=== PATIENT | female | born 1990 | race Caucasian/White ===

== ENCOUNTER 2023-06-08 10:07 | Emergency (ER) | payer OTHER ==
[~2023-06-08] VITALS: Ht 165.1 cm; Wt 94.8 kg
[2023-06-08 10:19] VITALS: BP 150/88; PULSE 78; RESP 16; TEMP 98.6; O2SAT 100
--- NOTE | 2023-06-08 11:55 | NUR ---
case # [id number]
[2023-06-08] MEDS ORDERED: ibuprofen tablet 400 MG TABLET PO ONE (12:35)
[2023-06-08] MEDS ORDERED: BACL-11 PO (14:14)
[2023-06-08] MEDS ORDERED: IBUP-1986 PO (14:14)
== END 2023-06-08 14:27 | disposition home or self-care (01) ==
LOC: ER 10:08
DX: S09.90XA Unspecified injury of head, initial encounter (principal); X58.XXXA Exposure to other specified factors, initial encounter; Y93.89 Activity, other specified; Y92.89 Other specified places as the place of occurrence of the external cause; Y99.8 Other external cause status
CPT/HCPCS: 70450; 99284